=== PATIENT | male | born 1975 | race African-American/Black ===

== ENCOUNTER 2021-04-16 02:41 | Emergency (ER) | payer OTHER ==
[2021-04-16] MEDS ORDERED: METHYLPREDNISOLONE 125 MG INJ ONE (03:56)
[2021-04-16] MEDS ORDERED: FAMOTIDINE 20 MG/2 ML VIAL IV ONE ×2 (03:56→20:38)
[2021-04-16] MEDS ORDERED: DIPHENHYDRAMINE 50 MG/ML VIAL ONE ×2 (03:56→20:37)
[2021-04-16] MEDS ORDERED: NA CHLORIDE 0.9% 1,000 ML ONE (03:56)
[2021-04-16] MEDS ORDERED: NA CHLORIDE 0.9% 500 ML ONE (20:38)
[2021-04-16] MEDS ORDERED: dexAMETHasone 10 MG/ML VIAL ONE (20:38)
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
[2021-04-18 03:52] VITALS: TEMP 98.6
[2021-04-18 03:57] VITALS: BP 129/79; O2SAT 96
== END 2021-04-16 06:08 | disposition home or self-care (01) ==
LOC: ER 02:41
DX: L50.0 Allergic urticaria (principal)
CPT/HCPCS: J1200 ×2; J1100; J7040; J7030; J2930

== ENCOUNTER 2021-04-16 16:50 | Emergency (ER) | payer OTHER ==
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
[2021-04-18 14:28] VITALS: TEMP 98.4
[2021-04-18 14:31] VITALS: O2SAT 100
[2021-04-18 14:33] VITALS: BP 134/74
== END 2021-04-16 22:47 | disposition home or self-care (01) ==
LOC: ER 16:50
DX: L50.9 Urticaria, unspecified (principal)